=== PATIENT | female | born 1945 | race Caucasian/White ===

== ENCOUNTER 2020-07-26 12:19 | Outpatient (CLI) | payer MEDICARE, SELFPAY ==
--- NOTE | 2020-07-26 12:42 | MM_ITS ---
WS: [id number] BILATERAL SCREENING DIGITAL MAMMOGRAM WITH CAD HISTORY: SCREEN COMPARISON: 06/24/2019 and 06/10/2018 Bilateral CC and MLO views submitted. Computer aided detection analyzed. Breast composition: The breasts are heterogeneously dense, which may obscure small masses. No suspici ous masses, microcalcifications or architectural distortion. Breast arterial calcifications bilateral ly. MM/[place] [id number] IMPRESSION: BI-RADS: 2-Benign FOLLOW UP: 1 Year Follow-up
== END 2020-07-26 12:20 | disposition home or self-care (01) ==
LOC: RADSHAW 12:27
PROVIDERS: PCP Family Medicine; Visit Provider Family Medicine
DX: Z12.31 Encounter for screening mammogram for malignant neoplasm of breast (principal)
CPT/HCPCS: 77067

== ENCOUNTER 2021-08-22 13:47 | Outpatient (CLI) | payer MEDICARE, SELFPAY ==
--- NOTE | 2021-08-22 13:56 | XR_ITS ---
WS: [id number] SCREENING DEXA SCAN WISHI CLINICAL INFORMATION: ANNUAL EXAM,,WELLNESS COMPARISON: None. FINDINGS: The L1-L4 bone mineral density measures 1.017 g/cm2. This corresponds to a T score score of -1.4 and Z score of 0.1. Left femoral neck bone mineral density measures 0.830 g/cm2. This corresponds to a T score of -1.4 an d Z score of 0.3. Right femoral neck bone mineral density measures 0.864 g/cm2. This corresponds to a T score -1.1of an d Z score of 0.5. Mean femoral neck bone mineral density measures 0.847 g/cm2. This corresponds to a T score of -1.3 an d Z score of 0.4. XR/XR DEXA axial skeleton* [id number] IMPRESSION: Osteopenia lumbar spine. Osteopenia femoral necks. Patient's FRAX calculated 10 year probability for major osteoporotic fracture i s 12.8 % and osteoporotic hip fracture is 2.9%.
== END 2021-08-22 13:48 | disposition home or self-care (01) ==
PROVIDERS: PCP Family Medicine; Visit Provider Family Medicine
DX: Z00.00 Encounter for general adult medical examination without abnormal findings (principal); M85.88 Other specified disorders of bone density and structure, other site
CPT/HCPCS: 77080

== ENCOUNTER 2021-11-29 08:55 | Outpatient (CLI) | payer MEDICARE, SELFPAY ==
--- NOTE | 2021-11-29 09:27 | FL_ITS ---
WS: [id number] MODIFIED BARIUM SWALLOW TECHNIQUE: Modified barium swallow with speech therapy using multiple consistencies. FLUOROSCOPY TIME: 1.9 minutes. CLINICAL INFORMATION: Other dysphagia COMPARISON: None. FINDINGS: Multiple consistencies utilized. No evidence of aspiration or penetration. No difficulties with bariu m tablet. Moderate esophageal hiatal hernia. Mild esophageal dysmotility partially evaluated. Mild na rrowing in the distal esophagus above the hiatal hernia. Findings can be further evaluated with upper GI. FL/FL barium swallow modifd [id number] IMPRESSION: 1. No evidence of aspiration penetration. 2. Moderate esophageal hiatal hernia with esophageal dysmotility 3. Recommend further evaluation with upper GI.
== END 2021-11-29 08:56 | disposition home or self-care (01) ==
PROVIDERS: PCP Family Medicine; Visit Provider Family Medicine
DX: R13.19 Other dysphagia (principal); K44.9 Diaphragmatic hernia without obstruction or gangrene
CPT/HCPCS: 74230; 92611

== ENCOUNTER → 2022-02-13 16:00 | Outpatient (BNVA) | payer MEDICARE, SELFPAY | PROVIDERS: PCP Family Medicine; Visit Provider Family Medicine | DX: C80.1 Malignant (primary) neoplasm, unspecified (principal) | CPT/HCPCS: 88304 ==

== ENCOUNTER → 2022-07-03 09:01 | Outpatient (BNVA) | payer MEDICARE, SELFPAY | PROVIDERS: PCP Family Medicine; Visit Provider Family Medicine | DX: Z00.00 Encounter for general adult medical examination without abnormal findings (principal); R73.9 Hyperglycemia, unspecified; I10 Essential (primary) hypertension; E78.5 Hyperlipidemia, unspecified | CPT/HCPCS: 80053; 80061; 83036; 85025 ==

== ENCOUNTER → 2023-01-02 10:19 | Outpatient (BNVA) | payer MEDICARE, SELFPAY | PROVIDERS: PCP Family Medicine; Visit Provider Family Medicine | DX: Z00.00 Encounter for general adult medical examination without abnormal findings (principal); I10 Essential (primary) hypertension; R73.9 Hyperglycemia, unspecified; E03.9 Hypothyroidism, unspecified | CPT/HCPCS: 80053; 80061; 83036; 84443 ==

== ENCOUNTER → 2023-07-09 10:01 | Outpatient (BNVA) | payer MEDICARE, SELFPAY | PROVIDERS: PCP Family Medicine; Visit Provider Family Medicine | DX: E03.9 Hypothyroidism, unspecified (principal); I10 Essential (primary) hypertension; R73.9 Hyperglycemia, unspecified | CPT/HCPCS: 80053; 80061; 83036; 84443 ==

== ENCOUNTER → 2023-12-31 10:27 | Outpatient (BNVA) | payer MEDICARE, SELFPAY | PROVIDERS: PCP Family Medicine; Visit Provider Family Medicine | DX: E11.9 Type 2 diabetes mellitus without complications (principal); I10 Essential (primary) hypertension; R73.9 Hyperglycemia, unspecified; E03.9 Hypothyroidism, unspecified; J45.909 Unspecified asthma, uncomplicated; I48.91 Unspecified atrial fibrillation; I48.92 Unspecified atrial flutter | CPT/HCPCS: 80053; 80061; 83036; 84443 ==

== ENCOUNTER 2024-04-17 12:58 | Outpatient (CLI) | payer MEDICARE, SELFPAY ==
--- NOTE | 2024-04-17 13:07 | XRR_ITS ---
PROCEDURE INFORMATION: Exam: XR Chest Exam date and time: 04/17/2024 1:14 PM Age: 78 years old Clinical indication: Cough; Patient HX: HX of asthma TECHNIQUE: Imaging protocol: Radiologic exam of the chest. Views: 2 views. COMPARISON: No relevant prior studies available. FINDINGS: Lungs: Unremarkable. No consolidation. Pleural spaces: Unremarkable. No pleural effusion. No pneumothorax. Heart/Mediastinum: Unremarkable. No cardiomegaly. Vasculature: Aortic atherosclerotic calcification. Bones/joints: Degenerative changes along the spine. Soft tissues: Numerous punctate densities along the anterior chest and imaged upper abdominal wall suspected to represent external artifact. XR/XR chest 2V* [id number] IMPRESSION: No acute findings.
== END 2024-04-17 12:59 | disposition home or self-care (01) ==
LOC: RAD 13:01
PROVIDERS: PCP Family Medicine; Visit Provider Specialist
DX: R05.9 Cough, unspecified (principal); Z87.09 Personal history of other diseases of the respiratory system; I70.0 Atherosclerosis of aorta; G31.89 Other specified degenerative diseases of nervous system
CPT/HCPCS: 71046

== ENCOUNTER 2024-04-28 08:18 | Outpatient (CLI) | payer MEDICARE, SELFPAY | END 2024-04-28 08:19 | disposition home or self-care (01) | PROVIDERS: PCP Family Medicine; Visit Provider Specialist | DX: R13.10 Dysphagia, unspecified (principal) | CPT/HCPCS: 94010 ==

== ENCOUNTER 2024-04-28 14:15 | Outpatient (CLI) | payer MEDICARE, SELFPAY ==
--- NOTE | 2024-04-28 14:20 | CT_ITS ---
WS: [id number] CT NECK TECHNIQUE: Contrast-enhanced CT of the neck with coronal and sagittal reformatted images. CLINICAL INFORMATION: DYSPHAGIA COMPARISON: None. DLP: 143.[address] scans at [facility] use at least one of these dose optimization techniques: automated e xposure control; mA and/or kV adjustment per patient size (includes targeted exams where dose is matc hed to clinical indication); or iterative reconstruction. FINDINGS: Aberrant RIGHT subclavian artery with a retroesophageal course. Recommend correlation for dysphagia. This is often incidental but can be associated with dysphagia Partially visualized paranasal sinuses are well aerated. Mastoid air cells are well aerated. Normal p osterior nasopharynx. Partial fatty atrophy of the RIGHT parotid gland. Normal submandibular glands. Tongue base appears normal. Dental artifact degrades some images at the tongue base. Normal parapharyngeal fat. Normal oropharynx. No evidence of supraglottic or glottic mass. Normal osborne bglottic airway. Thyroid gland is normal. Aortic calcification. Proximal subclavian arteries are boykin nt. Mild carotid bulb calcification. Moderate spondylitic changes cervical spine. No cervical lymphad enopathy. CT/CT neck w con* [id number] IMPRESSION: 1. 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 Recommend cor relation with dysphagia. Partial fatty atrophy of the RIGHT parotid gland. Parotid glands are otherwise normal in appearance. Normal submandibular glands. No evidence of supraglottic or glottic mass. No cervical lymphadenopathy.
[2024-04-28 15:00] LABS: Blood Urea Nitrogen 17 mg/dL (8-23)
== END 2024-04-28 14:16 | disposition home or self-care (01) ==
LOC: RAD 14:16
PROVIDERS: PCP Family Medicine; Visit Provider Specialist
DX: R13.10 Dysphagia, unspecified (principal)
CPT/HCPCS: 70491; 82565; 84520; Q9967

== ENCOUNTER 2024-05-06 08:19 | Outpatient (CLI) | payer MEDICARE, SELFPAY ==
--- NOTE | 2024-05-06 08:24 | FL_ITS ---
WS: [id number] FL barium swallow [id number] REASON FOR EXAM: dysphagia FLUOROSCOPY TIME: 2min [id number] # OF SPOT FILMS: Multiple FINDINGS: Patient was examined in the standing AP and lateral projections, prone RUVALCABA position, and the supine p osition. The swallowing of barium was monitored fluoroscopically with multiple spot films. The gastrointestina l tract was evaluated from the oropharynx to to the fundus of the stomach. The upper esophagus demonstrated normal motility and anatomy. The thoracic esophagus demonstrated a weakened primary peristaltic wave with intermittent tertiary co ntractions. In the upright and more severely in the RUVALCABA positions there was significant retention of barium in the esophagus to the level of the thoracic inlet. There was no lower esophageal sphincter spasm. There is a large hiatal hernia. Reflux to the midesophagus could be elicited with the patient supine and in the LPO position. 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 Large hiatal hernia with reflux. Due to the prolonged retention of barium in the thoracic esophagus to the level of the thoracic inlet, this patient is at significant risk for aspiration.
== END 2024-05-06 08:20 | disposition home or self-care (01) ==
LOC: RAD 08:21
PROVIDERS: PCP Family Medicine; Visit Provider Specialist
DX: R13.10 Dysphagia, unspecified (principal); K44.9 Diaphragmatic hernia without obstruction or gangrene; K21.9 Gastro-esophageal reflux disease without esophagitis
CPT/HCPCS: 74220

== ENCOUNTER 2024-05-13 10:09 | Outpatient (CLI) | payer MEDICARE, SELFPAY ==
--- NOTE | 2024-05-13 10:17 | FL_ITS ---
WS: [id number] EXAMINATION: FL barium swallow modifd [id number] ORDER DATE: 05/13/2024 11:10 AM REASON FOR EXAM: Other dysphagia COMPARISON: None available. FLUOROSCOPY TIME: 1min [id number] # OF SPOT FILMS: 10 video runs FINDINGS: There is good oral motor control. The swallowing mechanism is intact. There was no penetration or aspiration with any of the ingested c onsistencies. The barium tablet was delayed at the level of a hiatal hernia. FL/FL barium swallow modifd [id number] IMPRESSION: The swallowing mechanism is intact There is some delay in transit of the barium tablet at the hiatal hernia.
== END 2024-05-13 10:10 | disposition home or self-care (01) ==
LOC: RAD 10:10
PROVIDERS: PCP Family Medicine; Visit Provider Specialist
DX: R13.19 Other dysphagia (principal)
CPT/HCPCS: 74230; 92611

== ENCOUNTER → 2025-01-06 09:15 | Outpatient (BNVA) | payer MEDICARE, SELFPAY | PROVIDERS: PCP Family Medicine; Visit Provider Family Medicine | DX: I10 Essential (primary) hypertension (principal); R73.9 Hyperglycemia, unspecified; E03.9 Hypothyroidism, unspecified | CPT/HCPCS: 80053; 80061; 83036; 84443; 85025 ==

== ENCOUNTER → 2025-02-18 10:25 | Outpatient (BNVA) | payer MEDICARE, SELFPAY | PROVIDERS: PCP Family Medicine; Visit Provider Podiatrist Foot & Ankle Surgery | DX: S92.352A Displaced fracture of fifth metatarsal bone, left foot, initial encounter for closed fracture (principal); M79.672 Pain in left foot; X58.XXXA Exposure to other specified factors, initial encounter | CPT/HCPCS: 99204 ==

== ENCOUNTER → 2025-03-03 10:16 | Outpatient (BNVA) | payer MEDICARE, SELFPAY | PROVIDERS: PCP Family Medicine; Visit Provider Podiatrist Foot & Ankle Surgery | DX: S92.352A Displaced fracture of fifth metatarsal bone, left foot, initial encounter for closed fracture (principal); X58.XXXA Exposure to other specified factors, initial encounter | CPT/HCPCS: 73630; 99214 ==

== ENCOUNTER → 2025-03-24 09:32 | Outpatient (BNVA) | payer MEDICARE, SELFPAY | PROVIDERS: PCP Family Medicine; Visit Provider Podiatrist Foot & Ankle Surgery | DX: S92.352G Displaced fracture of fifth metatarsal bone, left foot, subsequent encounter for fracture with delayed healing (principal); X58.XXXD Exposure to other specified factors, subsequent encounter | CPT/HCPCS: 73630; 99214 ==

== ENCOUNTER → 2025-04-21 09:32 | Outpatient (BNVA) | payer MEDICARE, SELFPAY | PROVIDERS: PCP Family Medicine; Visit Provider Podiatrist Foot & Ankle Surgery | DX: S92.352D Displaced fracture of fifth metatarsal bone, left foot, subsequent encounter for fracture with routine healing (principal); X58.XXXD Exposure to other specified factors, subsequent encounter | CPT/HCPCS: 73630; 99213 ==